=== PATIENT | female | born 1985 | race American Indian/Alaskan Native ===

== ENCOUNTER 2016-12-04 12:52 | Inpatient (IN) | payer MEDICAID ==
[2016-12-04 13:31] LABS: Basophils % (Auto) 0.7 % (0.0-1.8); Eosinophils % (Auto) 1.3 % (0.0-4.3); Hematocrit 42.2 % (30.3-42.9); Hemoglobin 13.6 gm/dl (10.1-14.3); Mean Corpuscular HGB Conc 32 % (30-34); Mean Corpuscular Hemoglobin 29 pg (28-32); Mean Corpuscular Volume 90 fl (79-97); Platelet Count 232 K/mm3 (140-440); Red Blood Count 4.71 M/mm3 (3.65-5.03); Red Cell Distribution Width 12.1 % (13.2-15.2); White Blood Count 8.5 K/mm3 (4.5-11.0)
[2016-12-04 13:35] LABS: Bilirubin,Urine NEG (Negative); Blood,Urine SM (Negative); Ketones,Urine NEG (Negative); Leukocyte Esterase,Urine NEG (Negative); Nitrite,Urine NEG (Negative); Protein,Urine <15 mg/dL mg/dL (Negative); Urobilinogen,Urine < 2.0 mg/dL (<2.0); WBC,Urine < 1.0 /HPF (0.0-6.0)
[2016-12-04 13:44] LABS: Alanine Aminotransferase 10 units/L (7-56); Albumin 4.3 g/dL (3.9-5); Albumin/Globulin Ratio 1.4 %; Alkaline Phosphatase 79 units/L (35-129); Anion Gap 18 mmol/L; BUN/Creatinine Ratio 8.33; Blood Urea Nitrogen 5 mg/dL (7-17); Carbon Dioxide 25 mmol/L (22-30); Chloride 95.9 mmol/L (98-107); Glucose 97 mg/dL (65-100); Lipase 35 units/L (13-60); Potassium 3.3 mmol/L (3.6-5.0); Sodium 136 mmol/L (137-145); Total Protein 7.3 g/dL (6.3-8.2)
[2016-12-04] MEDS ORDERED: K-DUR PO ONE ×2 (13:50→16:58)
--- NOTE | 2016-12-04 13:50 | Emergency Department Report ---
ED Abdominal Pain HPI - General Chief Complaint: Abdominal Pain Stated Complaint: SEVERE ABD PAIN,POSSIBLE ULCER Time Seen by Provider: 12/04/16 13:16 Source: patient Mode of arrival: Ambulatory Limitations: No Limitations - History of Present Illness Initial Comments: The patient describes epigastric pain which principally occurs when she is laying down at or about midnight. She doesn't report any postprandial symptoms. She states that she decided to come in today because it's been happening daily for the last few days. She's had the pain off and on for many months but has not seen a physician. She informed triage that at times there is some radiation of pain to the back. Sometimes she has accompanying nausea and vomited yesterday. She states that a week ago it looked like she might have had some coffee grind-like material in her emesis but not yesterday. She' s had no recent fever or chills. She reports no menstrual irregularities or symptoms. -: month(s), year(s) Location: epigastric Radiation: back Migration to: no migration Severity: moderate Quality: aching Consistency: now resolved Improves With: nothing Worsens With: other (laying flat) Associated Symptoms: nausea - Related Data Home Medications Medication Instructions Recorded Confirmed Last Taken No Known Home Medications [No 12/04/16 12/04/16 Unknown Reported Home Medications] Allergies Allergy/AdvReac Type Severity Reaction Status Date / Time No Known Allergies Allergy Unverified 12/04/16 12:56 ED Review of Systems ROS: Stated complaint: SEVERE ABD PAIN,POSSIBLE ULCER Other details as noted in HPI Constitutional: denies: chills, fever Eyes: denies: eye pain, eye discharge, vision change ENT: denies: ear pain, throat pain Respiratory: denies: cough, shortness of breath, wheezing Cardiovascular: denies: chest pain, palpitations Endocrine: no symptoms reported Gastrointestinal: as per HPI, abdominal pain. denies: nausea, diarrhea Genitourinary: denies: urgency, dysuria, discharge Musculoskeletal: denies: back pain, joint swelling, arthralgia Skin: denies: rash, lesions Neurological: denies: headache, weakness, paresthesias Psychiatric: denies: anxiety, depression Hematological/Lymphatic: denies: easy bleeding, easy bruising ED Past Medical Hx - Past Medical History Previous Medical History?: No - Surgical History Additional Surgical History: X 3. RIGHT FOOT SURGERY - Social History Smoking Status: Current Every Day Smoker Substance Use Type: Alcohol - Medications Home Medications: Home Medications Medication Instructions Recorded Confirmed Last Taken Type No Known Home Medications [No 12/04/16 12/04/16 Unknown History Reported Home Medications] ED Physical Exam - General Limitations: No Limitations General appearance: alert, in no apparent distress - Head Head exam: Present: atraumatic, normocephalic - Eye Eye exam: Present: normal appearance. Absent: scleral icterus - ENT ENT exam: Present: mucous membranes moist - Neck Neck exam: Present: normal inspection - Respiratory Respiratory exam: Present: normal lung sounds bilaterally. Absent: respiratory distress - Cardiovascular Cardiovascular Exam: Present: regular rate, normal rhythm. Absent: systolic murmur, diastolic murmur, rubs, gallop - GI/Abdominal GI/Abdominal exam: Present: soft, normal bowel sounds. Absent: distended, tenderness, guarding, rebound, rigid, organomegaly, mass, bruit, pulsatile mass , hernia - Extremities Exam Extremities exam: Present: normal inspection - Back Exam Back exam: Present: normal inspection - Neurological Exam Neurological exam: Present: alert, oriented X3, CN II-XII intact. Absent: motor sensory deficit - Psychiatric Psychiatric exam: Present: normal affect, normal mood - Skin Skin exam: Present: warm, dry, intact, normal color. Absent: rash ED Course Vital Signs 12/04/16 12:53 Temperature 97.9 F Pulse Rate 104 H Respiratory 18 Rate Blood Pressure 152/101 O2 Sat by Pulse 98 Oximetry - Reevaluation(s) Reevaluation #1: Patient was given Zosyn, potassium, Protonix and IV fluid. She is referred to the hospitalist service for further care and evaluation/surgical consultation. 12/04/16 15:55 ED Medical Decision Making - Lab Data Result diagrams: 12/04/16 13:10 12/04/16 13:10 Laboratory Results - last 24 hr 12/04/16 12/04/16 12/04/16 13:02 13:10 13:10 WBC 8.5 RBC 4.71 Hgb 13.6 Hct 42.2 MCV 90 MCH 29 MCHC 32 RDW 12.1 L Plt Count 232 Lymph % (Auto) 21.8 [place] % (Auto) 6.1 Eos % (Auto) 1.3 Baso % (Auto) 0.7 Lymph # 1.9 [place] # 0.5 Eos # 0.1 Baso # 0.1 Seg Neutrophils % 70.1 H Seg Neutrophils # 6.0 Sodium 136 L Potassium 3.3 L Chloride 95.9 L Carbon Dioxide 25 Anion Gap 18 BUN 5 L Creatinine 0.6 L Estimated GFR > 60 BUN/Creatinine Ratio 8.33 Glucose 97 Calcium 9.0 Total Bilirubin 0.30 AST 16 ALT 10 Alkaline Phosphatase 79 Total Protein 7.3 Albumin 4.3 Albumin/Globulin Ratio 1.4 Lipase 35 HCG, Qual Urine Color Yellow Urine Turbidity Clear Urine pH 7.0 Ur Specific [place] 1.006 Urine Protein <15 mg/dl Urine Glucose (UA) Neg Urine Ketones Neg Urine Blood Sm Urine Nitrite Neg Urine Bilirubin Neg Urine Urobilinogen < 2.0 Ur Leukocyte Esterase Neg Urine WBC (Auto) < 1.0 Urine RBC (Auto) 2.0 U Epithel Cells (Auto) 2.0 Hyaline Casts 1 12/04/16 13:10 WBC RBC Hgb Hct MCV MCH MCHC RDW Plt Count Lymph % (Auto) [place] % (Auto) Eos % (Auto) Baso % (Auto) Lymph # [place] # Eos # Baso # Seg Neutrophils % Seg Neutrophils # Sodium Potassium Chloride Carbon Dioxide Anion Gap BUN Creatinine Estimated GFR BUN/Creatinine Ratio Glucose Calcium Total Bilirubin AST ALT Alkaline Phosphatase Total Protein Albumin Albumin/Globulin Ratio Lipase HCG, Qual Negative Urine Color Urine Turbidity Urine pH Ur Specific [place] Urine Protein Urine Glucose (UA) Urine Ketones Urine Blood Urine Nitrite Urine Bilirubin Urine Urobilinogen Ur Leukocyte Esterase Urine WBC (Auto) Urine RBC (Auto) U Epithel Cells (Auto) Hyaline Casts - Radiology Data Radiology results: report reviewed interpreted by me: Multiple stones and sludge. Common bile duct is normal. Gallbladder wall thickened measuring 3.9 mm at the fundus. Radiologist states cholelithiasis with I knee changes of cholecystitis. However there is no mention of any pericholecystic fluid. Critical care attestation.: If time is entered above; I have spent that time in minutes in the direct care of this critically ill patient, excluding procedure time. ED Disposition Clinical Impression: Cholecystitis, Hypokalemia Cholelithiasis Qualifiers: Cholelithiasis location: gallbladder Cholecystitis presence: with cholecystitis Cholecystitis acuity: acute and chronic Biliary obstruction: without biliary obstruction Qualified Code(s): K80.12 - Calculus of gallbladder with acute and chronic cholecystitis without obstruction Disposition: OP ADMITTED IP TO THIS HOSP Is pt being admited?: Yes Does the pt Need Aspirin: No Condition: Stable Instructions: Abdominal Pain (ED) Referrals: PRIMARY CARE, [Primary Care Provider] - 3-5 Days Time of Disposition: 15:56
--- NOTE | 2016-12-04 15:45 | Ultrasound Report ---
FINAL REPORT PROCEDURE: US ABDOMEN LIMITED TECHNIQUE: Real-time sonography was performed of the right upper quadrant of the abdomen with image documentation. CPT 61694 HISTORY: epigastric pain COMPARISON: No prior studies are available for comparison. FINDINGS: Visualized portions of the liver and pancreas display no abnormalities. Gallbladder wall appears thickened measuring 3.9 millimeters in the fundus. Sludge and stones are seen in the gallbladder. Stones measure up to 1.7 cm in diameter. Common bile duct is normal in size. Right kidney measures 10.9 cm in length and displays no abnormalities. IMPRESSION: Cholelithiasis is seen with likely changes of cholecystitis. Common bile duct is normal in size.
[2016-12-04] MEDS ORDERED: ZOFRAN IV ONE (15:52)
[2016-12-04] MEDS ORDERED: NACL 0.9% 1000 ML 1,000 ML IV ONE (15:52)
[2016-12-04] MEDS ORDERED: PROTONIX IV ONE ×2 (15:52→16:58)
[2016-12-04] MEDS ORDERED: ZOSYN/NS 4.5GM/100ML 4.5 GM/100 ML VIAL IV ONE ×2 (15:52→16:58)
[2016-12-04] MEDS ORDERED: ZOFRAN IV PRN ×2 (15:57→19:26)
[2016-12-04] MEDS ORDERED: ZOFRAN ONE (16:58)
[2016-12-04] MEDS ORDERED: NACL 0.9% 1000 ML 1,000 ML ONE (16:58)
[2016-12-04] MEDS ORDERED: MORPHINE ONE (16:59)
[2016-12-04] MEDS: MORPHINE IV PRN ×2 (17:16→22:37)
--- NOTE | 2016-12-04 19:01 | History and Physical Report ---
History of Present Illness Date of examination: 12/04/16 Date of admission: 12/04/16 15:58 Chief complaint: Chief complaint: Right upper quadrant pain for one week. History of present illness: History of present illness: 31-year-old female presents to the emergency room with epigastric and right upper quadrant pain for the last 1 week. More so for 1 week has been having right upper quadrant pain for a couple of months. No fever no chills. Accompanied by nausea and occasional vomiting. No menstrual irregularities. Pain is about 6-8 on a scale of 1-10. There is some radiation of pain to the back. No exacerbating or relieving factors. Review of System: Constitutional: no fever, no chills, no weight loss Ears, eyes, nose, mouth and throat: no nasal congestion, no nasal discharge, no sinus pressure, no vision change, no red eye. Neck: No neck pain or rigidity. Cardiovascular: No chest pain, no orthopnea, no palpitations, no leg swelling Respiratory: No shortness of breath, no cough, no congestion, no wheezing Gastrointestinal: abdominal pain, nausea, vomiting present. Genitourinary : no dysuria, no hematuria Musculoskeletal: no joint swelling or muscle ache Integumentary: no rash, no pruritis Neurological: no parathesias, no numbness, no tingling Endocrine: no cold or heat intolerance, no polyuria or polydipsia Hematologic/Lymphatic: no easy bruising, no easy bleeding, no gland swelling Allergic/Immunologic: no urticaria, no angioedema. Past History Past Medical History: No medical history Past Surgical History: (3), Other (right foot surgery) Social history: lives with family, smoking (smokes about 10 cigarettes a day alcohol occasionally. No IV drugs or marijuana.) Family history: hypertension Medications and Allergies Allergies Allergy/AdvReac Type Severity Reaction Status Date / Time No Known Allergies Allergy Unverified 12/04/16 12:56 Home Medications Medication Instructions Recorded Confirmed Last Taken Type No Known Home Medications [No 12/04/16 12/04/16 Unknown History Reported Home Medications] Active Meds: Active Medications Sodium Chloride (Nacl 0.9% 1000 Ml) 1,000 mls @ 125 mls/hr IV ONCE ONE Stop: 12/04/16 23:51 Last Admin: 12/04/16 17:18 Dose: 125 mls/hr Morphine Sulfate (Morphine) 2 mg IV Q4H PRN PRN Reason: Pain Last Admin: 12/04/16 17:16 Dose: 2 mg Ondansetron HCl (Zofran) 4 mg IV Q4H PRN PRN Reason: nausea Review of Systems ROS unobtainable: due to endotracheal tube All systems: negative (Review of System:) Exam - Constitutional Vitals: Temp Pulse Resp BP Pulse Ox 98.1 F 80 18 129/83 99 12/04/16 18:20 12/04/16 18:20 12/04/16 18:20 12/04/16 18:20 12/04/16 18:20 General appearance: Present: no acute distress, well-nourished - EENT Eyes: Present: PERRL ENT: hearing intact, clear oral mucosa - Neck Neck: Present: supple, normal ROM - Respiratory Respiratory effort: normal Respiratory: bilateral: CTA - Cardiovascular Heart rate: 78 Rhythm: regular Heart Sounds: Present: S1 & S2. Absent: rub, click - Extremities Extremities: pulses symmetrical, No edema Peripheral Pulses: within normal limits - Abdominal General gastrointestinal: Present: soft, tender (right upper quadrant. No guarding no rigidity.), non-distended, normal bowel sounds Female genitourinary: Present: normal - Integumentary Integumentary: Present: clear, warm, dry - Musculoskeletal Musculoskeletal: gait normal, strength equal bilaterally - Psychiatric Psychiatric: appropriate mood/affect, intact judgment & insight - Neurologic Neurologic: CNII-XII intact, moves all extremities Results - Labs CBC & Chem 7: 12/04/16 13:10 12/04/16 13:10 Labs: Laboratory Last Values WBC 8.5 K/mm3 (4.5-11.0) 12/04/16 13:10 RBC 4.71 M/mm3 (3.65-5.03) 12/04/16 13:10 Hgb 13.6 gm/dl (10.1-14.3) 12/04/16 13:10 Hct 42.2 % (30.3-42.9) 12/04/16 13:10 MCV 90 fl (79-97) 12/04/16 13:10 MCH 29 pg (28-32) 12/04/16 13:10 MCHC 32 % (30-34) 12/04/16 13:10 RDW 12.1 % (13.2-15.2) L 12/04/16 13:10 Plt Count 232 K/mm3 (140-440) 12/04/16 13:10 Lymph % (Auto) 21.8 % (13.4-35.0) 12/04/16 13:10 [place] % (Auto) 6.1 % (0.0-7.3) 12/04/16 13:10 Eos % (Auto) 1.3 % (0.0-4.3) 12/04/16 13:10 Baso % (Auto) 0.7 % (0.0-1.8) 12/04/16 13:10 Lymph # 1.9 K/mm3 (1.2-5.4) 12/04/16 13:10 [place] # 0.5 K/mm3 (0.0-0.8) 12/04/16 13:10 Eos # 0.1 K/mm3 (0.0-0.4) 12/04/16 13:10 Baso # 0.1 K/mm3 (0.0-0.1) 12/04/16 13:10 Seg Neutrophils % 70.1 % (40.0-70.0) H 12/04/16 13:10 Seg Neutrophils # 6.0 K/mm3 (1.8-7.7) 12/04/16 13:10 Sodium 136 mmol/L (137-145) L 12/04/16 13:10 Potassium 3.3 mmol/L (3.6-5.0) L 12/04/16 13:10 Chloride 95.9 mmol/L (98-107) L 12/04/16 13:10 Carbon Dioxide 25 mmol/L (22-30) 12/04/16 13:10 Anion Gap 18 mmol/L 12/04/16 13:10 BUN 5 mg/dL (7-17) L 12/04/16 13:10 Creatinine 0.6 mg/dL (0.7-1.2) L 12/04/16 13:10 Estimated GFR > 60 ml/min 12/04/16 13:10 BUN/Creatinine Ratio 8.33 % 12/04/16 13:10 Glucose 97 mg/dL (65-100) 12/04/16 13:10 Calcium 9.0 mg/dL (8.4-10.2) 12/04/16 13:10 Total Bilirubin 0.30 mg/dL (0.1-1.2) 12/04/16 13:10 AST 16 units/L (5-40) 12/04/16 13:10 ALT 10 units/L (7-56) 12/04/16 13:10 Alkaline Phosphatase 79 units/L (35-129) 12/04/16 13:10 Total Protein 7.3 g/dL (6.3-8.2) 12/04/16 13:10 Albumin 4.3 g/dL (3.9-5) 12/04/16 13:10 Albumin/Globulin Ratio 1.4 % 12/04/16 13:10 Lipase 35 units/L (13-60) 12/04/16 13:10 HCG, Qual Negative (Negative) 12/04/16 13:10 Urine Color Yellow (Yellow) 12/04/16 13:02 Urine Turbidity Clear (Clear) 12/04/16 13:02 Urine pH 7.0 (5.0-7.0) 12/04/16 13:02 Ur Specific [place] 1.006 (1.003-1.030) 12/04/16 13:02 Urine Protein <15 mg/dl mg/dL (Negative) 12/04/16 13:02 Urine Glucose (UA) Neg mg/dL (Negative) 12/04/16 13:02 Urine Ketones Neg mg/dL (Negative) 12/04/16 13:02 Urine Blood Sm (Negative) 12/04/16 13:02 Urine Nitrite Neg (Negative) 12/04/16 13:02 Urine Bilirubin Neg (Negative) 12/04/16 13:02 Urine Urobilinogen < 2.0 mg/dL (<2.0) 12/04/16 13:02 Ur Leukocyte Esterase Neg (Negative) 12/04/16 13:02 Urine WBC (Auto) < 1.0 /HPF (0.0-6.0) 12/04/16 13:02 Urine RBC (Auto) 2.0 /HPF (0.0-6.0) 12/04/16 13:02 U Epithel Cells (Auto) 2.0 /HPF (0-13.0) 12/04/16 13:02 Hyaline Casts 1 /LPF 12/04/16 13:02 Short CBC 12/04/16 Range/Units 13:10 WBC 8.5 (4.5-11.0) K/mm3 Hgb 13.6 (10.1-14.3) gm/dl Hct 42.2 (30.3-42.9) % Plt Count 232 (140-440) K/mm3 BMP 12/04/16 13:10 Sodium 136 L Potassium 3.3 L Chloride 95.9 L Carbon Dioxide 25 BUN 5 L Creatinine 0.6 L Glucose 97 Calcium 9.0 Liver Function 12/04/16 Range/Units 13:10 Total Bilirubin 0.30 (0.1-1.2) mg/dL AST 16 (5-40) units/L ALT 10 (7-56) units/L Alkaline Phosphatase 79 (35-129) units/L Albumin 4.3 (3.9-5) g/dL Urine 12/04/16 Range/Units 13:02 Urine Color Yellow (Yellow) Urine pH 7.0 (5.0-7.0) Ur Specific [place] 1.006 (1.003-1.030) Urine Protein <15 mg/dl (Negative) mg/dL Urine Glucose (UA) Neg (Negative) mg/dL - Imaging and Cardiology US - abdomen: report reviewed (cholelithiasis with likely changes of cholecystitis. Sludge and stones are seen in the gallbladder. Stones measuring up to 1.7 cm in diameter.) Assessment and Plan Assessment and plan: Acute cholecystitis: Will order MRCP. Surgeon conveyancer Dr Tom.Will consult . IV Dilaudid and Zofran in the meantime. IV fluids in the meantime. We will keep the patient nothing by mouth. Hypokalemia: Supplemented with IV potassium. DVT prophylaxis: Lovenox 40 mg subcutaneous daily. Advance Directives: Yes (full code) VTE prophylaxis?: Chemical Plan of care discussed with patient/family: Yes
[2016-12-04] MEDS ORDERED: MILK OF MAGNESIA PO PRN (19:23)
[2016-12-04] MEDS ORDERED: DULCOLAX PR PRN (19:23)
[2016-12-04] MEDS ORDERED: DILAUDID IV PRN (19:23)
[2016-12-04] MEDS ORDERED: TYLENOL PO PRN (19:23)
--- NOTE | 2016-12-04 19:35 | Admit Criteria Form ---
Admission Criteria Documentation: GALLBLADDER OR BILE DUCT INFLAMMATION OR STONE Clinical Indications for Admission to Inpatient Care ( Place 'X' for any and all applicable criteria): Admission is indicated for patients with ANY ONE of the following(1)(2)(3)(4)(5) : [ ]I. Acute cholecystitis as indicated by ALL of the following: [ ]a) Right upper quadrant pain, mass, or tenderness [ ]b) Systemic signs of inflammation indicated by ANY ONE of the following: [ ]i) Fever [ ]ii) C-reactive protein level greater than 10 mg/L (95 nmol/L) [ ]iii) White blood cell count greater than 10,000/mm3 (10 x109/L) or less than 4000/mm3 (4 x109/L) [X ]II. Inpatient admission required rather than observation care (Also use Gallbladder or Bile Duct Inflammation or Stone: Observation Care as appropriate) because of ANY ONE of the following: [ ]a) Common bile duct obstruction diagnosed [ ]b) Vomiting that is severe or persistent [X ]c) Severe pain requiring acute inpatient management [ ]d) Signs of intestinal obstruction or peritonitis [A] [ ]e) Severe electrolyte abnormalities requiring inpatient care [ ]f) Absent bowel sounds with complete ileus(8) [ ]g) Hemodynamic instability [ ]h) High fever or infection requiring inpatient admission as indicated by ANY ONE of the following (9): [ ]1) Appropriate outpatient or observation care antimicrobial Treatment. unavailable, not effective, or not feasible [ ]2) Temperature greater than 104.9 degrees F (40.5 degrees C) (oral) [ ]3) Temperature greater than 103.1 degrees F (39.5 degrees C) (oral) or less than 96.8 degrees F (36 degrees C) (rectal) that does not respond to all emergency treatment measures [ ]4) Documented bacteremia [ ]i) IV fluid to replace significant ongoing losses (greater than 3 L/m2 per day) [ ]j) Percutaneous or open drainage (eg, abscess, biliary tract) procedures [ ]k) Immediate inpatient surgery [ ]l) Other condition, treatment or monitoring requiring inpatient admission [ ]III. Acute cholangitis as indicated by ALL of the following(9)(10): [ ]a) Systemic signs of inflammation indicated by ANY ONE of the following: [ ]i) Fever [ ]ii) C-reactive protein level greater than 10 mg/L (95 nmol /L) [ ]iii) White blood cell count greater than 10,000/mm3 (10 x109/L) or less than 4000/mm3 (4 x109/L) [ ]b) Evidence of common bile duct disease indicated by ANY ONE of the following: [ ]i) Total serum bilirubin level greater than or equal to 2 mg/dL (34 micromoles/L) [ ]ii) Liver function test (alkaline phosphatase (ALP), r- glutamyltransferase (GGT), aspartate aminotransferase (AST), or alanine aminotransferase (ALT)) greater than 1.5 times the upper limit of normal[B] [ ]iii) Hepatobiliary imaging showing biliary dilatation or evidence of etiology (eg, stricture, stone, previously placed stent) Extended stay beyond goal length of stay may be needed for (1)(2)): [ ]a) Bacteremia or Hemodynamic instability [ ]b) Cholecystectomy [ ]c) Other surgical procedure(24) [ ]d) Percutaneous or endoscopic ultrasound-guided cholecystostomy The original [facility] content created by [facility] has been revised. The portions of the content which have been revised are identified through the use of italic text or in bold, and [facility] has neither reviewed nor approved the modified material. All other unmodified content is copyright [facility]. Please see references footnoted in the original [facility] edition 2016 Admission Criteria Met: Yes
[2016-12-04] MEDS ORDERED: D5W/0.45% NACL/KCL 20 MEQ 20 MEQ/1,000 ML BAG IV SCH (20:00)
[2016-12-04] MEDS: PEPCID IV SCH (22:11)
[2016-12-04] MEDS: ZOSYN/NS 4.5GM/100ML 4.5 GM/100 ML VIAL IV SCH (23:54)
[2016-12-05 04:51] LABS: Alanine Aminotransferase 8 units/L (7-56); Albumin 3.6 g/dL (3.9-5); Albumin/Globulin Ratio 1.4 %; Alkaline Phosphatase 64 units/L (35-129); Anion Gap 15 mmol/L; BUN/Creatinine Ratio 6.25; Blood Urea Nitrogen 5 mg/dL (7-17); Calcium 8.7 mg/dL (8.4-10.2); Carbon Dioxide 27 mmol/L (22-30); Chloride 103.2 mmol/L (98-107); Glucose 98 mg/dL (65-100); Potassium 3.8 mmol/L (3.6-5.0); Sodium 141 mmol/L (137-145); Total Protein 6.2 g/dL (6.3-8.2)
[2016-12-05 05:05] LABS: Basophils % (Auto) 0.3 % (0.0-1.8); Eosinophils % (Auto) 2.7 % (0.0-4.3); Hematocrit 38.6 % (30.3-42.9); Hemoglobin 12.4 gm/dl (10.1-14.3); Mean Corpuscular HGB Conc 32 % (30-34); Mean Corpuscular Hemoglobin 29 pg (28-32); Mean Corpuscular Volume 89 fl (79-97); Platelet Count 216 K/mm3 (140-440); Red Blood Count 4.32 M/mm3 (3.65-5.03); Red Cell Distribution Width 11.9 % (13.2-15.2); White Blood Count 7.7 K/mm3 (4.5-11.0)
[2016-12-05] MEDS: ZOSYN/NS 4.5GM/100ML 4.5 GM/100 ML VIAL IV SCH (08:20)
--- NOTE | 2016-12-05 10:39 | Progress Note ---
Assessment and Plan Assessment and plan: Cholelithiasis. Abdominal ultrasound reveals cholelithiasis with likely changes of cholecystitis. Await results of MRCP. Continue empiric antibiotics. Surgery consultation pending. Abdominal pain. Etiology likely secondary to #1. History Interval history: No new issues overnight. Hospitalist Physical - Constitutional Vitals: Temp Pulse Resp BP Pulse Ox 98.0 F 65 18 121/74 97 12/05/16 07:46 12/05/16 07:46 12/05/16 07:46 12/05/16 07:46 12/05/16 07:46 General appearance: Present: no acute distress, well-nourished - EENT Eyes: Present: PERRL, EOM intact ENT: hearing intact, clear oral mucosa, dentition normal - Neck Neck: Present: supple, normal ROM - Respiratory Respiratory effort: normal Respiratory: bilateral: CTA - Cardiovascular Rhythm: regular Heart Sounds: Present: S1 & S2. Absent: gallop, rub - Extremities Extremities: no ischemia, No edema, Full ROM - Abdominal General gastrointestinal: soft, tender, non-distended, normal bowel sounds Localized gastrointestinal: tender: epigastric periumbilical (mild) - Integumentary Integumentary: Present: clear, warm, dry - Neurologic Neurologic: CNII-XII intact, moves all extremities Results - Labs CBC & Chem 7: 12/05/16 04:13 12/05/16 04:13 Labs: Laboratory Last Values WBC 7.7 K/mm3 (4.5-11.0) 12/05/16 04:13 RBC 4.32 M/mm3 (3.65-5.03) 12/05/16 04:13 Hgb 12.4 gm/dl (10.1-14.3) 12/05/16 04:13 Hct 38.6 % (30.3-42.9) 12/05/16 04:13 MCV 89 fl (79-97) 12/05/16 04:13 MCH 29 pg (28-32) 12/05/16 04:13 MCHC 32 % (30-34) 12/05/16 04:13 RDW 11.9 % (13.2-15.2) L 12/05/16 04:13 Plt Count 216 K/mm3 (140-440) 12/05/16 04:13 Lymph % (Auto) 32.1 % (13.4-35.0) 12/05/16 04:13 [place] % (Auto) 7.9 % (0.0-7.3) H 12/05/16 04:13 Eos % (Auto) 2.7 % (0.0-4.3) 12/05/16 04:13 Baso % (Auto) 0.3 % (0.0-1.8) 12/05/16 04:13 Lymph # 2.5 K/mm3 (1.2-5.4) 12/05/16 04:13 [place] # 0.6 K/mm3 (0.0-0.8) 12/05/16 04:13 Eos # 0.2 K/mm3 (0.0-0.4) 12/05/16 04:13 Baso # 0.0 K/mm3 (0.0-0.1) 12/05/16 04:13 Seg Neutrophils % 57.0 % (40.0-70.0) 12/05/16 04:13 Seg Neutrophils # 4.4 K/mm3 (1.8-7.7) 12/05/16 04:13 Sodium 141 mmol/L (137-145) 12/05/16 04:13 Potassium 3.8 mmol/L (3.6-5.0) 12/05/16 04:13 Chloride 103.2 mmol/L (98-107) 12/05/16 04:13 Carbon Dioxide 27 mmol/L (22-30) 12/05/16 04:13 Anion Gap 15 mmol/L 12/05/16 04:13 BUN 5 mg/dL (7-17) L 12/05/16 04:13 Creatinine 0.8 mg/dL (0.7-1.2) 12/05/16 04:13 Estimated GFR > 60 ml/min 12/05/16 04:13 BUN/Creatinine Ratio 6.25 % 12/05/16 04:13 Glucose 98 mg/dL (65-100) 12/05/16 04:13 Calcium 8.7 mg/dL (8.4-10.2) 12/05/16 04:13 Total Bilirubin 0.50 mg/dL (0.1-1.2) 12/05/16 04:13 AST 12 units/L (5-40) 12/05/16 04:13 ALT 8 units/L (7-56) 12/05/16 04:13 Alkaline Phosphatase 64 units/L (35-129) 12/05/16 04:13 Total Protein 6.2 g/dL (6.3-8.2) L 12/05/16 04:13 Albumin 3.6 g/dL (3.9-5) L 12/05/16 04:13 Albumin/Globulin Ratio 1.4 % 12/05/16 04:13 Lipase 35 units/L (13-60) 12/04/16 13:10 HCG, Qual Negative (Negative) 12/04/16 13:10 Urine Color Yellow (Yellow) 12/04/16 13:02 Urine Turbidity Clear (Clear) 12/04/16 13:02 Urine pH 7.0 (5.0-7.0) 12/04/16 13:02 Ur Specific [place] 1.006 (1.003-1.030) 12/04/16 13:02 Urine Protein <15 mg/dl mg/dL (Negative) 12/04/16 13:02 Urine Glucose (UA) Neg mg/dL (Negative) 12/04/16 13:02 Urine Ketones Neg mg/dL (Negative) 12/04/16 13:02 Urine Blood Sm (Negative) 12/04/16 13:02 Urine Nitrite Neg (Negative) 12/04/16 13:02 Urine Bilirubin Neg (Negative) 12/04/16 13:02 Urine Urobilinogen < 2.0 mg/dL (<2.0) 12/04/16 13:02 Ur Leukocyte Esterase Neg (Negative) 12/04/16 13:02 Urine WBC (Auto) < 1.0 /HPF (0.0-6.0) 12/04/16 13:02 Urine RBC (Auto) 2.0 /HPF (0.0-6.0) 12/04/16 13:02 U Epithel Cells (Auto) 2.0 /HPF (0-13.0) 12/04/16 13:02 Hyaline Casts 1 /LPF 12/04/16 13:02
[2016-12-05] MEDS: PEPCID IV SCH (10:53)
--- NOTE | 2016-12-05 11:26 | Magnetic Resonance Report ---
MRI ABDOMEN WITHOUT CONTRAST MRCP INDICATION: Cholecystitis. COMPARISON: RUQ ultrasound from yesterday. FINDINGS: Noncontrast multiplanar and multisequence MRI of the abdomen demonstrates normal hepatic and splenic contours and signal. Similar to the ultrasound, a 1.3 cm gallstone towards the fundus and another 1.6 cm gallstone possibly impacted at the gallbladder neck noted. Mild pericholecystic fluid/wall edema. No biliary dilatation. Pancreas, adrenals, nonaneurysmal abdominal aorta, IVC, nonhydronephrotic kidneys, bowel and marrow signal appear within normal limits except for a 3.2 cm left interpolar cyst seen. Constipation not excluded. No ascites or significant adenopathy. Lung bases appear grossly unremarkable. MRCP images confirm the above findings with CBD caliber 3-4 mm at the darrell hepatis, maximum at 6 mm along its mid course about the pancreatic head and tapering to approximately 2 mm distally near the ampulla without definite choledocholithiasis. CONCLUSION: 1. Cholelithiasis again noted with cholecystitis suspected in an appropriate setting, as described. Please also correlate clinically and with laboratory values. 2. Other findings, including left renal cyst. Thank you for the opportunity to participate in this patient's care.
--- NOTE | 2016-12-05 12:48 | Consultation ---
History of Present Illness Consult date: 12/05/16 Reason for consult: other (abd pain) - History of present illness History of present illness: 31 year old female with hx of epigastric/RUQ abd pain, associated with nausea, admitted from ER, normal WBC, normal lfts, ultrasound shows stone impacted in neck of gallbladder, no hx of jaundice or hepatitis. Past History Past Medical History: No medical history Past Surgical History: (3), Other (right foot surgery) Social history: lives with family, smoking (smokes about 10 cigarettes a day alcohol occasionally. No IV drugs or marijuana.) Family history: hypertension Medications and Allergies Allergies Allergy/AdvReac Type Severity Reaction Status Date / Time No Known Allergies Allergy Unverified 12/04/16 12:56 Home Medications Medication Instructions Recorded Confirmed Last Taken Type No Known Home Medications [No 12/04/16 12/04/16 Unknown History Reported Home Medications] Active Meds: Active Medications Acetaminophen (Tylenol) 650 mg PO Q4H PRN PRN Reason: Pain MILD(1-3)/Fever >100.5/ABEBE Bisacodyl (Dulcolax) 10 mg VA QDAY PRN PRN Reason: Constipation unrelieved by MOM Famotidine (Pepcid) 20 mg IV BID CHANEL Last Admin: 12/05/16 10:53 Dose: 20 mg Hydromorphone HCl (Dilaudid) 1 mg IV Q3H PRN PRN Reason: Pain , Severe (7-10) Potassium Chloride/Dextrose/Sod Cl (D5w/0.45% Nacl/Kcl 20 Meq) 20 meq in 1,000 mls @ 75 mls/hr IV DIRECT CHANEL Last Admin: 12/04/16 22:10 Dose: 75 mls/hr Piperacillin Sod/Tazobactam Sod (Zosyn/Ns 4.5gm/100ml) 4.5 gm in 100 mls @ 200 mls/hr IV Q8H CHANEL PRN Reason: Protocol Last Admin: 12/05/16 08:20 Dose: 200 mls/hr Magnesium Hydroxide (Milk Of Magnesia) 30 ml PO Q4H PRN PRN Reason: Constipation Morphine Sulfate (Morphine) 2 mg IV Q4H PRN PRN Reason: Pain Last Admin: 12/04/16 22:37 Dose: 2 mg Ondansetron HCl (Zofran) 4 mg IV Q3H PRN PRN Reason: nausea Review of Systems - Constitutional other (abd pain) Exam Vital Signs Temp Pulse Resp BP Pulse Ox 97.9 F 104 H 18 152/101 98 12/04/16 12:53 12/04/16 12:53 12/04/16 12:53 12/04/16 12:53 12/04/16 12:53 - General physical appearance Positive: no distress - Eyes Positive: PERRL, normal occular movement - ENT Positive: normal pinna, normal nares, normal mucosa, no hearing loss, no congestion - Neck Positive: no masses, no bruits, trachea midline, no venous distension - Respiratory Positive: normal expansion, normal respiratory effort, clear to auscultation - Cardiovascular Rhythm: regular - Extremities Extremities: no ischemia, pulses symmetrical, No edema Peripheral Pulses: within normal limits - Breasts Breasts: deferred - Abdomen Abdomen: Present: bowel sounds normal (tender to deep palpation RUQ, negative Jones's sign.) Hernia: none - Neurologic Neurologic: alert and oriented to time, place and person, motor strength and sensation are grossly intact - Musculoskeletal normal gait, normal posture - Psychiatric Psychiatric: appropriate mood/affect, intact judgment & insight Results - Labs 12/05/16 04:13 12/05/16 04:13 Abnormal lab results 12/05/16 12/05/16 Range/Units 04:13 04:13 RDW 11.9 L (13.2-15.2) % [place] % (Auto) 7.9 H (0.0-7.3) % BUN 5 L (7-17) mg/dL Total Protein 6.2 L (6.3-8.2) g/dL Albumin 3.6 L (3.9-5) g/dL Diabetes panel 12/05/16 Range/Units 04:13 Sodium 141 (137-145) mmol/L Potassium 3.8 (3.6-5.0) mmol/L Chloride 103.2 (98-107) mmol/L Carbon Dioxide 27 (22-30) mmol/L BUN 5 L (7-17) mg/dL Creatinine 0.8 (0.7-1.2) mg/dL Glucose 98 (65-100) mg/dL Calcium 8.7 (8.4-10.2) mg/dL AST 12 (5-40) units/L ALT 8 (7-56) units/L Alkaline Phosphatase 64 (35-129) units/L Total Protein 6.2 L (6.3-8.2) g/dL Albumin 3.6 L (3.9-5) g/dL Calcium panel 12/05/16 Range/Units 04:13 Calcium 8.7 (8.4-10.2) mg/dL Albumin 3.6 L (3.9-5) g/dL Pituitary panel 12/05/16 Range/Units 04:13 Sodium 141 (137-145) mmol/L Potassium 3.8 (3.6-5.0) mmol/L Chloride 103.2 (98-107) mmol/L Carbon Dioxide 27 (22-30) mmol/L BUN 5 L (7-17) mg/dL Creatinine 0.8 (0.7-1.2) mg/dL Glucose 98 (65-100) mg/dL Calcium 8.7 (8.4-10.2) mg/dL Adrenal panel 12/05/16 Range/Units 04:13 Sodium 141 (137-145) mmol/L Potassium 3.8 (3.6-5.0) mmol/L Chloride 103.2 (98-107) mmol/L Carbon Dioxide 27 (22-30) mmol/L BUN 5 L (7-17) mg/dL Creatinine 0.8 (0.7-1.2) mg/dL Glucose 98 (65-100) mg/dL Calcium 8.7 (8.4-10.2) mg/dL Total Bilirubin 0.50 (0.1-1.2) mg/dL AST 12 (5-40) units/L ALT 8 (7-56) units/L Alkaline Phosphatase 64 (35-129) units/L Total Protein 6.2 L (6.3-8.2) g/dL Albumin 3.6 L (3.9-5) g/dL Assessment and Plan Early acute cholecystitis with stone impacted in neck of gallbladder.Will schedule for lap faye.
--- NOTE | 2016-12-05 13:44 | Anesthesia Day of Surgery ---
Anesthesia Day of Surgery - Day of Surgery Patient Examined: Yes Patient H&P Reviewed: Yes Patient is NPO: Yes
[2016-12-05] MEDS ORDERED: SUBLIMAZE IV PRN (13:45)
[2016-12-05] MEDS ORDERED: ZOFRAN IV PRN (13:45)
[2016-12-05] MEDS ORDERED: DILAUDID IV PRN (13:45)
--- NOTE | 2016-12-05 13:47 | Anesthesia Consultation ---
Anesthesia Consult and Med Hx Date of service: 12/05/16 (pt 137 pounds not kg) - Airway Anesthetic Teeth Evaluation: Good ROM Head & Neck: Adequate Mental/Hyoid Distance: Adequate Mallampati Class: Class II Intubation Access Assessment: Probably Good - Pulmonary Exam CTA: Yes (clear blbs) - Cardiac Exam Cardiac Exam: RRR - Pre-Operative Health Status ASA Pre-Surgery Classification: ASA2 Proposed Anesthetic Plan: General - Pulmonary Hx Smoking: Yes Hx Asthma: No COPD: No Hx Pneumonia: No - Central Nervous System Hx Psychiatric Problems: No - Endocrine Hx End Stage Renal Disease: No - Additional Comments Anesthesia Medical History Comments: pt + n/v last yesterday
[2016-12-05] MEDS ORDERED: NACL 0.9% 1000 ML 1,000 ML IV SCH (14:00)
[2016-12-05] MEDS ORDERED: VERSED IV NR (14:00)
[2016-12-05] MEDS ORDERED: SUBLIMAZE ONE (14:59)
[2016-12-05] MEDS ORDERED: DIPRIVAN 10 MG/ML IV ONE (14:59)
[2016-12-05] MEDS ORDERED: ZEMURON IV ONE (15:00)
[2016-12-05] MEDS ORDERED: XYLOCAINE MPF 2% ONE (15:00)
[2016-12-05] MEDS ORDERED: MARCAINE 0.5% 30 ML INFILTRATI ONE (15:10)
[2016-12-05] MEDS ORDERED: XYLOCAINE 1% 20 mL ONE (15:10)
[2016-12-05] MEDS ORDERED: QUELICIN ONE (15:29)
[2016-12-05] MEDS ORDERED: NEOSTIGMINE ONE (15:31)
[2016-12-05] MEDS ORDERED: ROBINUL ONE (15:31)
[2016-12-05] MEDS ORDERED: ZOFRAN ONE (15:32)
[2016-12-05] MEDS ORDERED: DECADRON ONE (15:52)
[2016-12-05] MEDS ORDERED: MARCAINE 0.5% INFILTRATI ONE (15:59)
[2016-12-05] MEDS ORDERED: XYLOCAINE 1% 20 mL INFILTRATI ONE (15:59)
[2016-12-05] MEDS ORDERED: NACL 0.9% IR ONE ×2 (16:00)
[2016-12-05] MEDS ORDERED: TORADOL ONE (16:20)
--- NOTE | 2016-12-05 16:36 | Post Operative Note ---
Pre-op diagnosis: acute cholecystitis Post-op diagnosis: same Findings: c/w acute cholecystitis Procedure: Laparoscopic cholecystectomy Anesthesia: LENI Surgeon: KARAN LEWIS Shake Feeder: NANDA QUINN Estimated blood loss: none Pathology: list (GB) Specimen disposition: to lab Condition: stable Disposition: floor
[2016-12-05] MEDS ORDERED: VERSED ONE (16:49)
--- NOTE | 2016-12-05 16:52 | Event Note ---
Date: 12/05/16 CASE went very well, if patient tolerates liquids she can go home from gen surgical standpoint, I will see in my office in one week. No need for further antiobiotics,only oral pain meds for home.
--- NOTE | 2016-12-05 17:12 | Post Anesthesia Evaluation ---
- Post Anesthesia Evaluation Patient Participated: No Airway Patent: Yes Stable Respiratory Function: Yes Nausea/Vomiting: No Temp > 96.8F: Yes Pain Manageable: Yes Adequeate Hydration: Yes Anesthesia Complications: No Block Receding Appropriately: Not Applicable Patient on Ventilator: No
[2016-12-05] MEDS ORDERED: NACL 0.9% 1000 ML 1,000 ML ONE (17:32)
[2016-12-05] MEDS ORDERED: PERCOCET 5/325 PO PRN (17:49)
[2016-12-05] MEDS: NACL 0.9% 1000 ML 1,000 ML IV SCH (18:15)
[2016-12-05] MEDS: MORPHINE IV PRN ×2 (18:15→23:41)
--- NOTE | 2016-12-05 19:30 | Operative Report ---
PREOPERATIVE DIAGNOSIS: Acute cholecystitis. POSTOPERATIVE DIAGNOSIS: Acute cholecystitis. PROCEDURE: Laparoscopic cholecystectomy. SURGEON: Prabhjot Tom MD PIECE WORKER: Elisha Brandt MD OPERATIVE FINDINGS: Compatible with early acute cholecystitis. DESCRIPTION OF PROCEDURE: After informed consent, the patient received IV antibiotics. She was induced under general anesthesia and sterilely prepped and draped with compression stockings in place. A skin wheal was raised in the subumbilical position with 0.5% Marcaine mixed with 1% lidocaine. A small incision was made with an 11 scalpel. The Veress needle was introduced, tested and found to be satisfactorily placed and the intraabdominal cavity was insufflated to acceptable parameters with CO2. Veress needle was removed and with standard technique, a 5 mm port was placed under direct visualization with a 0 degree 5 mm camera. All the other ports performed under direct visualization with the operative laparoscope. In a like fashion, a 10 mm port was placed in the subxiphoid position, two 5 mm ports in the midclavicular and midaxillary line. The patient was then positioned properly. Operative findings were compatible with acute cholecystitis with gallstone impacted in the neck of the gallbladder. Traction was placed in the apex of the body of the gallbladder in a cephalad direction over the right lobe of the liver. Lateral traction was placed on the infundibulum. Utilizing a Kitner dissector, I dissected out and identified the lymph node of [place], cystic duct, cystic artery, common hepatic, and common bile duct. Therefore, the critical view of [place] or the triangle of safety was demonstrated. Clips were placed on the cystic duct proximally and distally and it was cut. The clips were secured in place with no leakage of bile. Clips were placed on the cystic artery proximally and distally, it was cut and the clips were secured with no bleeding. The gallbladder was then taken out retrograde with a J-hook and removed in a gallbladder bag. The abdomen was washed out with a [place]hat irrigation system until clear and then the ports were withdrawn under direct visualization with the scope with no bleeding from the anterior abdominal wall. The 10 mm port site was closed with interrupted UR 6-0 Vicryls and then 4-0 Monopril was used for the skin incision. More lidocaine and Marcaine were injected into the skin incisions and then was covered with Dermaflex. The patient was hemodynamically stable throughout the procedure. The sponge and needle count was correct x2. JOB# [id number] JERAD/MADDY
[2016-12-06] MEDS: NACL 0.9% 1000 ML 1,000 ML IV SCH (04:38)
[2016-12-06] MEDS: MORPHINE IV PRN (06:18)
--- NOTE | 2016-12-06 07:29 | Discharge Summary ---
Providers - Providers Date of Admission: 12/04/16 15:58 Date of discharge: 12/06/16 Attending physician: REJI BURT 12/04/16 19:27 Consult to Physician [CONS] Routine Consulting Provider: KARAN LEWIS Reason For Exam: Cholecystitis Place consult to:: DR. LEWIS Notified:: OFFICE Phone number called:: [phone] Was contact made?: Yes Time called:: 12:32 Comment:: CONSULT COMPLETED - CYNTHIA Primary care physician: LABOR CONCILIATOR Hospitalization Reason for admission: acute cholecystitis Condition: Good Pertinent studies: ultrasound RUQ Procedures: lap cholecystectomy Hospital course: PT admitted, u/s, MRCP, NPO,IV antibiotics and fluids, pain meds, taken to OR for uneventful lap faye, did well , sent home. Disposition: DISCHARGED TO HOME OR SELFCARE Time spent for discharge: 20min Core Measure Documentation - Palliative Care Palliative Care/ Comfort Measures: Not Applicable - Core Measures Any of the following diagnoses?: none Exam - Constitutional Vitals: Temp Pulse Resp BP Pulse Ox 98.9 F 65 20 121/65 100 12/06/16 00:04 12/06/16 00:04 12/06/16 00:04 12/06/16 00:04 12/06/16 00:04 General appearance: Present: no acute distress, well-nourished - EENT Eyes: Present: PERRL ENT: hearing intact, clear oral mucosa - Neck Neck: Present: supple, normal ROM - Respiratory Respiratory effort: normal - Cardiovascular Heart Sounds: Present: S1 & S2. Absent: rub, click - Extremities Extremities: pulses symmetrical, No edema Peripheral Pulses: within normal limits - Abdominal General gastrointestinal: Present: soft, non-tender, normal bowel sounds ( incisions OK) - Psychiatric Psychiatric: appropriate mood/affect, intact judgment & insight - Neurologic Neurologic: CNII-XII intact, moves all extremities Plan Activity: no restrictions Weight Bearing Status: Full Weight Bearing Diet: regular Wound: open to air Follow up with: PRIMARY CARE, [Primary Care Provider] - 3-5 Days Prescriptions: RX: oxyCODONE /ACETAMINOPHEN [Percocet 5/325 mg] 1 tab PO Q4H PRN #30 tablet PRN Reason: Pain, Moderate (4-6)
[2016-12-06 08:38] VITALS: BP 121/75
--- NOTE | 2016-12-06 10:52 | Progress Note ---
Subjective Date of service: 12/06/16 Interval history: Patient discharged prior to post op rounds. Objective - Constitutional Vitals: Vital Signs - 12hr 12/06/16 12/06/16 12/06/16 00:04 08:00 08:42 Temperature 98.9 F 97.9 F Pulse Rate [ 65 76 From Monitor] Respiratory 20 18 Rate Blood Pressure 121/65 121/75 [Right Arm] O2 Sat by Pulse 100 100 100 Oximetry - Labs CBC & Chem 7: 12/05/16 04:13 12/05/16 04:13
--- NOTE | 2016-12-06 19:59 | Discharge Summary ---
DISCHARGE DIAGNOSIS: Acute cholecystitis. PROCEDURES: The patient underwent an ultrasound of right upper quadrant and an MRCP and an uneventful laparoscopic cholecystectomy. See the H and P for details. HOSPITAL COURSE: Basically this is a 31-year-old female presented to the Emergency Room with abdominal pain. Her white count was normal. LFTs were not elevated, but she had pain, which could not be controlled. She was admitted, hydrated, made n.p.o. Surgery consultation was obtained. Please see my consult for details. The patient subsequently underwent a ultrasound of right upper quadrant findings consistent of impacted stone in the neck of the gallbladder. She underwent an MRCP which showed no common duct stone and similar findings of the ultrasound. She was taken to the operating room where she underwent an uneventful laparoscopic cholecystectomy. She tolerated it well. She was tolerating clear liquids and discharged home on postoperative day #1. Her vitals were completely stable. Her incisions were healing beautifully. She was nondistended, ambulatory. She was discharged home, given Percocet for pain. There is no role for any further antibiotics. She was instructed on wound care not to lift anything more than 30 pounds for 2 weeks. I will see her in the office 1 week following discharge. JOB# [id number] JERAD/MADDY
== END 2016-12-06 09:20 | disposition home or self-care (01) | DRG 419 ==
LOC: ED 12:52 → 2B-SURG 15:58
PROVIDERS: ADMIT Internal Medicine; ATTEND Hospitalist
PROC: 0FT44ZZ Resection of Gallbladder, Percutaneous Endoscopic Approach (ICD-10-PCS; principal; 2016-12-05)
DX: K80.12 Calculus of gallbladder with acute and chronic cholecystitis without obstruction (principal); E87.6 Hypokalemia; F17.210 Nicotine dependence, cigarettes, uncomplicated; Z98.891 History of uterine scar from previous surgery; Z82.49 Family history of ischemic heart disease and other diseases of the circulatory system
CPT/HCPCS: 36415; 74181; 76705; 80053; 81001; 83690; 84703; 85025; 88304; 96365; 96375; A4217; C9113; J0330; J1100; J1885; J2250; J2270; J2405; J2543; J2704; J2710; J3010; J7030